=== PATIENT | female | born 1990 | race Hispanic/Latino ===

== ENCOUNTER 2024-02-20 22:53 | Emergency (ER) | payer OTHER ==
[2024-02-21] MEDS ORDERED: Ketorolac Tromethamine 30 MG (1 mL) VIAL ONE (00:02)
== END 2024-02-21 00:21 | disposition home or self-care (01) ==
LOC: CSHERS 22:53
DX: M54.42 Lumbago with sciatica, left side (principal)
CPT/HCPCS: 96372; 99283; J1885